=== PATIENT | male | born 1990 | race Caucasian/White ===

== ENCOUNTER 2017-07-06 19:00 | Emergency (ER) | payer SELFPAY ==
[~2017-07-06] VITALS: Ht 198.1 cm; Wt 78.0 kg
[2017-07-06 19:04] VITALS: BP 150/92; PULSE 99; RESP 16; O2SAT 100
[2017-07-06] MEDS ORDERED: DICL75TA PO (19:16)
[2017-07-06] MEDS ORDERED: ROBA750T PO (19:16)
--- NOTE | 2017-07-06 19:19 | PD ---
HPI Chief Complaint: Back/ Neck Pain or Injury Time Seen by Provider: 19:12 Travel History International Travel<30 days: No Contact w/Intl Traveler<30days: No Traveled to known affect area: No History of Present Illness HPI 27-year-old white male presents to emergency department with a 4-5 day history of lower back pain. He states that he did not have a trauma. He noticed some lower back pain after skateboarding. He denies any history of chronic back pain. No numbness, tingling or weakness. Pain is moderate. Worse with bending and movement. Some relief remaining still. PFSH Past Medical History Medical History: Denies Significant Hx Diminished Hearing: No Immunizations Current: Yes Tetanus Vaccination: Unknown Influenza Vaccination: No Social History Alcohol Use: Yes (OCCASSIONALLY) Tobacco Use: Yes (1 PPD) Substance Use: No Allergies-Medications (Allergen,Severity, Reaction): Coded Allergies: codeine (Verified Allergy, Severe, RASH, 07/06/17) penicillin G (Verified Adverse Reaction, Severe, N/V, 07/06/17) Reported Meds & Prescriptions Reported Meds & Active Scripts Active Robaxin (Methocarbamol) 750 Mg Tab 1,500 Mg PO TID [address] (Diclofenac Sodium) 75 Mg Tabdr 75 Mg PO BID Review of Systems General / Constitutional: No: Fever Eyes: No: Visual changes HENT: No: Headaches Cardiovascular: No: Chest Pain or Discomfort Respiratory: No: Shortness of Breath Gastrointestinal: No: Abdominal Pain Genitourinary: No: Dysuria Musculoskeletal: Positive: Myalgias, Arthralgias, Limited ROM, Cramping, Pain Skin: No Rash Neurologic: No: Weakness, Paresthesia Psychiatric: No: Depression Endocrine: No: Polydipsia Hematologic/Lymphatic: No: Easy Bruising Physical Exam Narrative GENERAL: Well-developed, well-nourished in no apparent distress. Nontoxic appearing. HEAD: Normocephalic, atraumatic. EYES: Pupils equal round and reactive. Extraocular motions intact. No scleral icterus. No injection or drainage. ENT: Nose clear. Throat without erythema, tonsillar hypertrophy or exudate. Uvula midline. Airway patent. NECK: Trachea midline. Supple, nontender, moves head freely. No central bony tenderness or spasm. CARDIOVASCULAR: Regular rate and rhythm without murmurs, gallops, or rubs. RESPIRATORY: Clear to auscultation. Breath sounds equal bilaterally. No wheezes , rales, or rhonchi. GASTROINTESTINAL: Abdomen soft, non-tender, nondistended. No hepato-splenomegaly , or palpable masses. No guarding. EXTREMITIES: No clubbing, cyanosis, or edema. No joint tenderness. BACK: No central bony tenderness to palpation of dorsal lumbar spine. Patient has paralumbar muscle tenderness. Mild spasm. Able to bend to 70. No saddle anesthesia. Heel and toe stand. Normal gait. Without deformity. No flank tenderness. NEUROLOGICAL: Awake, alert and oriented x 3 .Cranial nerves grossly intact. Motor and sensory grossly within normal limits. Normal speech. Data Data Last Documented VS Vital Signs Date Time Temp Pulse Resp B/P (MAP) Pulse Ox O2 Delivery O2 Flow Rate FiO2 07/06/17 19:04 99 16 150/92 (111) 100 Orders Orders Ed Discharge Order (07/06/17 19:15) MDM Medical Decision Making Medical Screen Exam Complete: Yes Emergency Medical Condition: Yes Medical Record Reviewed: Yes Differential Diagnosis MDM: High Differential diagnoses: Fracture, sprain, strain, HNP, nerve or vascular injury , epidural abscess, pilonidal cyst Narrative Course This is back pain Diagnosis Primary Impression: Acute back pain Qualified Codes: M54.5 - Low back pain Patient Instructions: General Instructions Additional Instructions: Rest. Ice for the next 3 days followed by heat . Robaxin and Voltaren. Follow-up with a primary care doctor in one week. Return to the ER for emergencies. Med/Other Pt SpecificInfo: Prescription(s) given Scripts Methocarbamol (Robaxin) 750 Mg Tab 1500 MG PO TID for Muscle Spasm for 10 Days, TAB 0 Refills Prov: Bradley Alvarado MD 07/06/[address] (Diclofenac Sodium DR) 75 Mg Tabdr 75 MG PO BID, #20 TAB 0 Refills Prov: Bradley Alvarado MD 07/06/17 Disposition: 01 DISCHARGE HOME Condition: Stable Sang Silva Jul 06, 2017 19:19
== END 2017-07-06 19:30 | disposition home or self-care (01) ==
LOC: NEPK 19:00
DX: M54.5 Low back pain (principal); F17.200 Nicotine dependence, unspecified, uncomplicated; Z79.899 Other long term (current) drug therapy; Z88.0 Allergy status to penicillin; Z88.5 Allergy status to narcotic agent
CPT/HCPCS: 99283